=== PATIENT | male | born 1935 | race Caucasian/White ===

== ENCOUNTER 2016-03-17 12:29 | Inpatient (IN) | payer MEDICARE, OTHER ==
[2016-03-17] MEDS ORDERED: IPRATROPIUM/ALBUTEROL 0.5-2.5 MG/3 ML AMPUL NEB ONE (12:44)
[2016-03-17 13:04] LABS: ABSOLUTE EOSINOPHILS # (AUTO) 0.1 10^3/uL (0.0-0.6); ABSOLUTE LYMPHOCYTES (AUTO) 0.6 10^3/uL (0.5-4.7); ABSOLUTE MONOCYTES (AUTO) 0.4 10^3/uL (0.1-1.4); ABSOLUTE NEUT (AUTO) 6.5 10^3/uL (1.7-8.2); BASOPHILS % (AUTO) 0.4 % (0-2); EOSINOPHILS % (AUTO) 1.1 % (0-6); HEMATOCRIT 31.6 % (37.9-51.0); HEMOGLOBIN 10.3 g/dL (13.5-17.0); HGB HCT DIFFERENCE -0.7; LYMPHOCYTES % (AUTO) 7.7 % (13-45); MEAN CORPUSCULAR HGB CONC 32.7 g/dL (32.0-36.0); MEAN CORPUSCULAR VOLUME 92 fl (80-97); MONOCYTES % (AUTO) 4.8 % (3-13); RED BLOOD COUNT 3.44 10^6/uL (4.35-5.55); RED CELL DISTRIBUTION WIDTH 17.8 % (11.5-14.0); WHITE BLOOD COUNT 7.5 10^3/uL (4.0-10.5)
[2016-03-17 13:06] LABS: PROTHROMBIN TIME 15.1 SEC (11.4-15.4)
--- NOTE | 2016-03-17 13:21 | ER Document Report ---
ED General - General Chief Complaint: Respiratory Distress Stated Complaint: RESPIRATORY DISTRESS Mode of Arrival: Medic Information source: Patient, [facility] Records Notes: 80 yr old male DNR hx of chf copd presents as respiratory distress. Pt noted to by hypoxic in the 65% on RA that started this earlier today. denies any fevers or chills nausea or vomtiing . TRAVEL OUTSIDE OF THE [place] IN LAST 30 DAYS: No - HPI Onset: Just prior to arrival Onset/Duration: Sudden Quality of pain: No pain Severity: Severe Pain Level: Denies Associated symptoms: Nonproductive cough, Shortness of breath Exacerbated by: Denies Relieved by: Denies Similar symptoms previously: Yes Recently seen / treated by doctor: Yes - Related Data Allergies/Adverse Reactions: No Known Allergies Allergy (Verified 12/22/15 10:06) Past Medical History - Social History Smoking Status: Never Smoker Cigarette use (# per day): No Chew tobacco use (# tins/day): No Smoking Education Provided: No Family History: Reviewed & Not Pertinent - Past Medical History Cardiac Medical History: Reports: Hx Atrial Fibrillation, Hx Congestive Heart Failure, Hx Heart Attack, Hx Hypercholesterolemia, Hx Hypertension, Hx Peripheral Vascular Disease Pulmonary Medical History: Reports: Hx COPD Endocrine Medical History: Reports: Hx Diabetes Mellitus Type 1, Hx Diabetes Mellitus Type 2 Psychiatric Medical History: Denies: Hx Depression Past Surgical History: Reports: Hx Orthopedic Surgery - Immunizations Hx Diphtheria, Pertussis, Tetanus Vaccination: Yes Hx Pneumococcal Vaccination: 09/12/59 Review of Systems - Review of Systems Notes: REVIEW OF SYSTEMS: CONSTITUTIONAL : Denies fever, chills, or sweats. Denies recent illness. EENT: Denies eye, ear, throat, or mouth pain or symptoms. Denies nasal or sinus congestion or discharge. Denies throat, tongue, or mouth swelling or difficulty swallowing. CARDIOVASCULAR: Denies chest pain. Denies palpitations or racing or irregular heart beat. Denies ankle edema. RESPIRATORY: Admits shortness breath difficulty breathing GASTROINTESTINAL: Denies abdominal pain or distention. Denies nausea, vomiting , or diarrhea. Denies blood in vomitus, stools, or per rectum. Denies black, tarry stools. Denies constipation. GENITOURINARY: Denies difficulty urinating, painful urination, burning, frequency, blood in urine, or discharge. MUSCULOSKELETAL: Denies back or neck pain or stiffness. Denies joint pain or swelling. SKIN: Denies rash, lesions or sores. HEMATOLOGIC : Denies easy bruising or bleeding. LYMPHATIC: Denies swollen, enlarged glands. NEUROLOGICAL: Denies confusion or altered mental status. Denies passing out or loss of consciousness. Denies dizziness or lightheadedness. Denies headache. Denies weakness or paralysis or loss of use of either side. Denies problems with gait or speech. Denies sensory loss, numbness, or tingling. Denies seizures. PSYCHIATRIC: Denies anxiety or stress. Denies depression, suicidal ideation, or homicidal ideation. ALL OTHER SYSTEMS REVIEWED AND NEGATIVE. Dictation was performed using [employer] voice recognition software PHYSICAL EXAMINATION: GENERAL: Ill-appearing male significant respiratory distress. HEAD: Atraumatic, normocephalic. EYES: Pupils equal round and reactive to light, extraocular movements intact, sclera anicteric, conjunctiva are normal. ENT: Nares patent, oropharynx clear without exudates. Moist mucous membranes. NECK: Normal range of motion, supple without lymphadenopathy LUNGS: Coarse rhonchi all throughout retractions noted HEART: Regular rate and rhythm without murmurs ABDOMEN: Soft, nontender, nondistended abdomen. No guarding, no rebound. No masses appreciated. Musculoskeletal: Normal range of motion, no pitting or edema. No cyanosis. NEUROLOGICAL: Cranial nerves grossly intact. Normal speech, normal gait. Normal sensory, motor exams PSYCH: Normal mood, normal affect. SKIN: Warm, Dry, normal turgor, no rashes or lesions noted. Patient immediately placed on BiPAP, lab work imaging are pending at this time, he does have significant respiratory distress and poor prognosis Physical Exam - Vital signs Vitals: BP 149/104 H 03/17/16 12:33 Course - Re-evaluation Re-evalutation: 03/17/16 14:18 pt immediately plaed on bipap , satting well but in significant resp distress chest xray is noted to have chf exacerbation will admit to hospitalist service - Vital Signs Vital signs: Temp Pulse Resp BP Pulse Ox 23 H 130/98 H 97 03/17/16 13:01 03/17/16 13:01 03/17/16 13:01 - Laboratory Result Diagrams: 03/17/16 12:45 03/17/16 12:45 Laboratory results interpreted by me: 03/17/16 03/17/16 03/17/16 12:45 12:45 13:30 RBC 3.44 L Hgb 10.3 L Hct 31.6 L RDW 17.8 H Seg Neutrophils % 86.0 H Lymphocytes % 7.7 L VBG pH 7.25 L VBG pCO2 65.3 H* BUN 61 H Creatinine 2.39 H Est GFR ( Amer) 32 L Est GFR (Non-Af Amer) 26 L Glucose 169 H Alkaline Phosphatase 185 H - Diagnostic Test Radiology reviewed: Image reviewed, Reports reviewed - EKG Interpretation by Me EKG shows normal: Sinus rhythm, Fields, Intervals, QRS Complexes Rhythm: A.Fib Critical Care Note - Critical Care Note Total time excluding time spent on procedures (mins): 33 Comments: minutes of critical care time spent in direct contact evaluating and reevaluating the patient, treating symptoms, reviewing labs and studies and speaking with family and consultants excluding any procedures Discharge - Discharge Clinical Impression: KIRTI (acute kidney injury), Acute and chronic respiratory failure with hypoxia Atrial fibrillation Qualifiers: Atrial fibrillation type: persistent Qualified Code(s): I48.1 - Persistent atrial fibrillation CHF (congestive heart failure) Qualifiers: Congestive heart failure type: diastolic Congestive heart failure chronicity: acute on chronic Qualified Code(s): I50.33 - Acute on chronic diastolic ( congestive) heart failure Chronic obstructive pulmonary disease Qualifiers: COPD type: unspecified COPD Qualified Code(s): J44.9 - Chronic obstructive pulmonary disease, unspecified Condition: Stable Disposition: ADMITTED INPATIENT Admitting Provider: Hospitalist Unit Admitted: [facility]
[2016-03-17 13:25] LABS: ALANINE AMINOTRANSFERASE 33 U/L (21-72); ALBUMIN 3.9 g/dL (3.5-5.0); ALKALINE PHOSPHATASE 185 U/L (38-126); ANION GAP 16 (5-19); ASPARTATE AMINO TRANSFERASE 44 U/L (17-59); BILIRUBIN,TOTAL 0.6 mg/dL (0.2-1.3); BLOOD UREA NITROGEN 61 mg/dL (7-20); CARBON DIOXIDE 27 mmol/L (22-30); CHLORIDE 102 mmol/L (98-107); CREATININE RESULT 2.39 mg/dL (0.52-1.25); GLUCOSE 169 mg/dL (75-110); POTASSIUM 3.8 mmol/L (3.6-5.0); TOTAL PROTEIN 6.9 g/dL (6.3-8.2)
[2016-03-17 13:42] LABS: VENOUS BLOOD BASE EXCESS -0.6 mmol/L; VENOUS BLOOD HCO3 27.7 mmol/L (20-32); VENOUS BLOOD PH 7.25 (7.30-7.42)
[2016-03-17 13:48] LABS: VENOUS BLOOD PCO2 65.3 mmHg (35-63)
[2016-03-17] MEDS ORDERED: LEVALBUTEROL HCL NEB 1.25 MG/3 ML AMPUL NEB PRN (15:07)
[2016-03-17] MEDS ORDERED: ACETAMINOPHEN 325 MG TABLET PO PRN (15:07)
[2016-03-17] MEDS ORDERED: POLYETHYLENE GLYCOL 3350 POWDER 17 GM/1 PACKET PO PRN (15:12)
[2016-03-17] MEDS ORDERED: DEXTROSE 50%-WATER 25 GM/50 ML DISP.SYRIN IV PRN ×2 (15:14)
[2016-03-17] MEDS ORDERED: GLUCAGON,HUMAN RECOMB 1 MG INJ IM PRN (15:14)
[2016-03-17] MEDS ORDERED: INSULIN LISPRO 100 UNIT/ML 3 ML VIAL SUBCUT PRN (15:14)
[2016-03-17] MEDS ORDERED: DEXTROSE 40% GEL 15 GM TUBE PO PRN ×2 (15:14)
[2016-03-17] MEDS ORDERED: PHARMACY COMMUNICATION ORDER MC NR ×2 (15:15→17:30)
[2016-03-17] MEDS ORDERED: VANCOMYCIN HCL 0 MG in DEXTROSE 5%-WATER 250 ML IV NR (15:15)
[2016-03-17] MEDS ORDERED: METHYLPREDNISOLONE INJ 40 MG/1 ML SDV IV ONE (15:45)
[2016-03-17] MEDS ORDERED: METHYLPREDNISOLONE INJ 125 MG/2 ML SDV IV ONE (15:45)
[2016-03-17] MEDS ORDERED: LEVOFLOXACIN 750 MG/D5W RTU 750 MG/150 ML RTUPB IV ONE (16:00)
--- NOTE | 2016-03-17 16:05 | EKG REPORT ---
SEVERITY:- ABNORMAL ECG - ATRIAL FIBRILLATION, V-RATE 99-161 VPC REPOLARIZATION ABNORMALITY, PROB RATE RELATED BORDERLINE PROLONGED QT INTERVAL : Confirmed by: Sirena Herr 17-Mar-2016 16:04:47
[2016-03-17] MEDS ORDERED: NITROGLYCERIN 2% OINTMENT 1 GM PACKET TP ONE (16:15)
[2016-03-17] MEDS: IPRATROPIUM/ALBUTEROL 0.5-2.5 MG/3 ML AMPUL NEB SCH ×2 (16:18→20:28)
[2016-03-17 16:25] LABS: APPEARANCE,URINE SLIGHTLY-CLOUDY; BILIRUBIN,URINE NEGATIVE (NEGATIVE); GLUCOSE, URINE NEGATIVE (NEGATIVE); KETONES,URINE NEGATIVE (NEGATIVE); LEUKOCYTE ESTERASE,URINE TRACE (NEGATIVE); NITRITE,URINE NEGATIVE (NEGATIVE); PROTEIN,URINE 30 mg/dL (NEGATIVE); URINE SPECIFIC GRAVITY 1.014; UROBILINOGEN,URINE NEGATIVE mg/dL (<2.0)
[2016-03-17] MEDS ORDERED: ASPIRIN 300 MG SUPP, RECTAL PR ONE (16:30)
[2016-03-17 16:56] LABS: ARTERIAL BLOOD BASE EXCESS -2.9 mmol/L; ARTERIAL BLOOD O2 SATURATION 84.8 % (94-98)
[2016-03-17] MEDS ORDERED: SODIUM BICARBONATE 8.4% INJ 50 MEQ/50 ML DISP.SYRIN IV ONE (17:20)
[2016-03-17] MEDS ORDERED: METOPROLOL TARTRATE PF/INJ 5 MG/5 ML SDV IV ONE (17:22)
[2016-03-17] MEDS ORDERED: BUMETANIDE INJ/PF 1 MG/4 ML SDV IV SCH ×2 (18:00→22:00)
[2016-03-17] MEDS ORDERED: CEFEPIME 2 GM/D5W RTU 2 GM/50 ML RTUPB IV SCH (18:00)
[2016-03-17] MEDS ORDERED: NORMAL SALINE 1000 ML 500 ML IV ONE (18:24)
[2016-03-17] MEDS: DOCUSATE SODIUM 100 MG CAPSULE PO SCH (18:42)
[2016-03-17] MEDS: LANSOPRAZOLE 15 MG TAB.RAP.DR PO SCH (18:42)
[2016-03-17] MEDS: VANCOMYCIN HCL 1,000 MG in DEXTROSE 5%-WATER 250 ML IV SCH (19:25)
[2016-03-17] MEDS: FLUTICASONE NASAL SPRAY 50 MCG/SPRY 120 SPRAY/16 GM NAREB SCH (19:29)
[2016-03-17] MEDS: ALBUMIN HUMAN 50 ML IV SCH ×2 (20:22→23:07)
[2016-03-17] MEDS: ACETYLCYSTEINE 20% SOLN 800 MG/4 ML VIAL.NEB NEB SCH (20:28)
[2016-03-17] MEDS: DILTIAZEM HCL/D5W 125 ML IV PRN (20:58)
--- NOTE | 2016-03-17 21:15 | PDOC H&P ---
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 Patient is on BiPAP and unable to give very much history but cannot intermittently. He does describe to fever, per sputum, and increasing shortness of breath. Apparently patient was found to have very low oxygen saturation when he picked him up. He also was found to be in A. fib with RVR. Patient also found to be overtly volume overloaded. Patient apparently according to his surrogate decision maker rigidity or, was found to be in A. fib yesterday with RVR and declined going to the emergency department. Patient being admitted to the hospital service for sepsis, healthcare associated pneumonia, and acute hypoxemic respiratory failure. Past Medical History Cardiac Medical History: Reports: Atrial Fibrillation, Congestive Heart Failure , Myocardial Infarction, Hyperlipidema, Hypertension, Peripheral Vascular Disease Pulmonary Medical History: Reports: Chronic Obstructive Pulmonary Disease (COPD) Endocrine Medical History: Reports: Diabetes Mellitus Type 1, Diabetes Mellitus Type 2 Psychiatric Medical History: Denies: Depression Past Surgical History Past Surgical History: Reports: Orthopedic Surgery Social History Information Source: [facility] Records Lives with: Skilled Nursing Smoking Status: Former Smoker Frequency of Alcohol Use: None Hx Recreational Drug Use: No Hx Prescription Drug Abuse: No - Advance Directive Resuscitation Status: Do Not Resuscitate Surrogate healthcare decision maker:: Eve SANTIZO, family friend Family History Family History: Reviewed & Not Pertinent Parental Family History Reviewed: No - unable to speak Children Family History Reviewed: No Sibling(s) Family History Reviewed.: No Medication/Allergy Home Medications: Acetaminophen [Tylenol Extra Strength 500 mg Tablet] 500 mg PO Q4HP PRN Albuterol Sulfate [Proair HFA] 2 puff IH Q6HP PRN 03/17/16 Allopurinol [Zyloprim 100 mg Tablet] 100 mg PO DAILY 03/17/16 Aspirin [Aspirin 325 mg Tablet] 325 mg PO DAILY 03/17/16 Cyanocobalamin (Vitamin B-12) [Vitamin B-12 1000 mcg Tablet] 1,000 mcg PO DAILY 03/17/16 Escitalopram Oxalate [Lexapro 10 mg Tablet] 20 mg PO DAILY 03/17/16 Ferrous Sulfate 325 mg PO DAILY 03/17/16 Fluticasone Propionate [Flonase Nasal Winside 50 Mcg/Winside 16 gm] 1 spray IN BID 03/17/16 Furosemide [Lasix 40 mg Tablet] 40 mg PO DAILY 03/17/16 Guaifenesin [Robitussin Syrup 200 mg/10 ml Ud Cup] 200 mg PO Q6HP PRN 03/17/16 Hydralazine HCl 75 mg PO Q8 03/17/16 Isosorbide Mononitrate [Imdur 60 mg Tablet.er] 60 mg PO DAILY 03/17/16 Loperamide HCl [Imodium 2 mg Capsule] 2 mg PO PRN PRN 03/17/16 Magnesium Hydroxide [Milk of Magnesia 30 ml Udcup] 30 mg PO QHS 03/17/16 Methocarbamol 750 mg PO QHS 03/17/16 Neomy Sulf/Bacitrac Zn/Poly [Triple Antibiotic Ointment] 1 applic TOP PRN PRN Polyethylene Glycol 3350 [Miralax Powder 17 gm/Packet] 17 gm PO DAILY 03/17/16 Tamsulosin HCl [Flomax 0.4 mg Cap.sr] 0.4 mg PO QHS 03/17/16 Tiotropium [place] [Spiriva Handihaler 18 mcg/dose (30 Dose)] 1 cap IH DAILY 06/28 Tramadol HCl 50 mg PO QHS 03/17/16 Allergies/Adverse Reactions: No Known Allergies Allergy (Verified 12/22/15 10:06) Review of Systems ROS unobtainable: Other - BiPAP Physical Exam Vital Signs: Temp Pulse Resp BP Pulse Ox 97.4 F 136 H 19 97/60 L 84 L 03/17/16 17:42 03/17/16 18:14 03/17/16 17:42 03/17/16 17:42 03/17/16 17:25 General appearance: PRESENT: hard of hearing, severe distress, well-developed, well-nourished Head exam: PRESENT: atraumatic, normocephalic Eye exam: PRESENT: conjunctival injection, conjunctiva pink, EOMI, PERRLA. ABSENT: scleral icterus Ear exam: PRESENT: normal external ear exam Mouth exam: PRESENT: moist Neck exam: PRESENT: JVD, thyromegaly. ABSENT: lymphadenopathy, tracheal deviation Respiratory exam: PRESENT: accessory muscle use, crackles - Bilateral bases, decreased breath sounds - Bases, prolonged expiratory phas, retraction - Intercostal, rhonchi - Scattered, symmetrical, tachypnea. ABSENT: stridor, unlabored, wheezes Cardiovascular exam: PRESENT: irregular rhythm, +S1, +S2, systolic murmur, tachycardia. ABSENT: diastolic murmur, RRR, rubs Pulses: PRESENT: normal carotid pulses, normal radial pulses Vascular exam: ABSENT: normal capillary refill GI/Abdominal exam: PRESENT: hypoactive bowel sounds, soft, tenderness. ABSENT: distended, firm, guarding, mass, Nichole's sign, organolmegaly, rebound, rigid Rectal exam: PRESENT: deferred Extremities exam: PRESENT: other - 3+ pitting edema Neurological exam: PRESENT: alert, awake, other - Unable to fully assess due to BiPAP Psychiatric exam: PRESENT: appropriate affect, normal mood Skin exam: PRESENT: dry, intact. ABSENT: cyanosis, rash, warm - Clinical Results Laboratory Results: 03/17/16 03/17/16 03/17/16 15:11 16:10 16:25 Carbonic Acid 2.22 H HCO3/H2CO3 Ratio 12:1 ABG pH 7.18 L* ABG pCO2 73.6 H* ABG pO2 62.2 L ABG HCO3 26.9 H ABG O2 Saturation 84.8 L ABG Base Excess -2.9 FiO2 100% Lactic Acid Cancelled Urine Color YELLOW Urine Appearance SLIGHTLY-CLOUDY Urine pH 5.0 Ur Specific [place] 1.014 Urine Protein 30 H Urine Glucose (UA) NEGATIVE Urine Ketones NEGATIVE Urine Blood NEGATIVE Urine Nitrite NEGATIVE Ur Leukocyte Esterase TRACE H Urine WBC (Auto) 3 Urine RBC (Auto) 0 Impressions: Chest X-Ray 03/17/16 12:34 IMPRESSION: Bibasilar densities as noted above Assessment & Plan - Diagnosis (1) Acute and chronic respiratory failure with hypoxia Is this a current diagnosis for this admission?: YesPlan: Currently on BiPAP. Will titrate this after ABG. Patient is a DNR/DNI (2) Healthcare-associated pneumonia Is this a current diagnosis for this admission?: YesPlan: Begin patient on cefepime, Levaquin, and vancomycin. Pending sputum culture. Begin on pulmonary toileting. Continue BiPAP. Patient has history also of bronchiectasis prior smoking history. No history of Pseudomonas to our record. Feel the patient is quite ill and have discussed with his surrogate decision maker the severity of his illness. (3) Sepsis Qualifiers: Sepsis type: sepsis due to unspecified organism Qualified Code(s): A41.9 - Sepsis, unspecified organism Is this a current diagnosis for this admission?: YesPlan: Likely secondary to healthcare associated pneumonia. (4) Hypothermia Qualifiers: Encounter type: initial encounter Qualified Code(s): T68.XXXA - Hypothermia, initial encounter Is this a current diagnosis for this admission?: YesPlan: Warming blanket and treat sepsis. Check TSH and cortisol (5) Atrial fibrillation with RVR Is this a current diagnosis for this admission?: YesPlan: We'll place patient on scheduled metoprolol. Likely secondary to underlying sepsis. Will resume Coreg when able (6) Chronic obstructive pulmonary disease Qualifiers: COPD type: unspecified COPD Qualified Code(s): J44.9 - Chronic obstructive pulmonary disease, unspecified Is this a current diagnosis for this admission?: YesPlan: Scheduled nebulized treatments and steroids (7) Anemia in chronic kidney disease Is this a current diagnosis for this admission?: YesPlan: Monitor H&H (8) BPH (benign prostatic hypertrophy) Qualifiers: Prostatic enlargement morphology: unspecified morphology Lower urinary tract symptom presence: presence of symptoms unspecified Qualified Code(s ): N40.0 - Benign prostatic hyperplasia without lower urinary tract symptoms Is this a current diagnosis for this admission?: Yes (9) CKD stage 4 due to type 2 diabetes mellitus Is this a current diagnosis for this admission?: YesPlan: Radially adjust all medications (10) Coronary artery disease Qualifiers: Coronary Disease-Associated Artery/Lesion type: [place] artery Associated angina: without angina Is this a current diagnosis for this admission?: Yes (11) Diabetes mellitus type II, controlled Qualifiers: Diabetes mellitus complication status: without complication Diabetes mellitus intermodal truck driver insulin use: with intermediate use Qualified Code(s): E11.9 - Type 2 diabetes mellitus without complications Is this a current diagnosis for this admission?: YesPlan: Accu-Cheks and sliding scale Insulin every 6 patient currently nothing by mouth (12) Diastolic congestive heart failure Qualifiers: Congestive heart failure chronicity: acute on chronic Qualified Code (s): I50.33 - Acute on chronic diastolic (congestive) heart failure Is this a current diagnosis for this admission?: Yes (13) Peripheral vascular disease Is this a current diagnosis for this admission?: Yes - Time Time Spent: Greater than 70 Minutes Medications reviewed and adjusted accordingly: Yes - Inpatient Certification Based on my medical assessment, after consideration of the patient's comorbidities, presenting symptoms, or acuity I expect that the services needed warrant INPATIENT care.: Yes I certify that my determination is in accordance with my understanding of Medicare's requirements for reasonable and necessary INPATIENT services [42 CFR 412.3e].: Yes Medical Necessity: Need For IV Fluids, Need For Continuous Telemetry Monitoring , Need for Nebulizer Therapy and Monitoring of Response, Need for IV Antibiotics Post Hospital Care: D/C Financial Examiner Documentation
[2016-03-17] MEDS ORDERED: METHYLPREDNISOLONE INJ 40 MG/1 ML SDV IV SCH (22:00)
[2016-03-17] MEDS: CEFEPIME HCL 2 GM in DEXTROSE 5%-WATER 50 ML IV SCH (22:37)
[2016-03-17] MEDS: HEPARIN SOD (PORCINE) 5,000 UNIT/ML 1 ML SYRINGE SUBCUT SCH (22:38)
[2016-03-17] MEDS: METHYLPREDNISOLONE INJ 125 MG/2 ML SDV IV SCH (22:38)
[2016-03-18] MEDS: TAMSULOSIN HCL 0.4 MG CAP.SR.24H PO SCH ×2 (00:32→21:58)
[2016-03-18] MEDS: GUAIFENESIN 600 MG TABLET.SA PO SCH ×3 (00:32→21:58)
[2016-03-18] MEDS: SENNOSIDES/DOCUSATE 8.6-50 MG 1 EACH TABLET PO SCH ×2 (00:32→21:58)
[2016-03-18 01:22] LABS: ARTERIAL BLOOD O2 SATURATION 92.2 % (94-98)
[2016-03-18] MEDS ORDERED: MORPHINE SULFATE 10 MG/ML INJ ONE (04:50)
[2016-03-18] MEDS ORDERED: MORPHINE SULFATE 10 MG/ML INJ IV ONE (06:00)
[2016-03-18] MEDS ORDERED: DOPAMINE HCL/DEXTROSE 5%-WATER 800 MG/250 ML RTUINJ IV ONE (06:03)
[2016-03-18] MEDS ORDERED: DOPAMINE HCL/DEXTROSE 5%-WATER 250 ML IV PRN (06:10)
[2016-03-18] MEDS ORDERED: MORPHINE SULFATE 10 MG/ML INJ IV PRN (06:10)
[2016-03-18 06:18] LABS: HEMOGLOBIN 9.6 g/dL (13.5-17.0); HGB HCT DIFFERENCE -1.2; MEAN CORPUSCULAR HEMOGLOBIN 29.9 pg (27.0-33.4); MEAN CORPUSCULAR HGB CONC 32.1 g/dL (32.0-36.0); MEAN CORPUSCULAR VOLUME 93 fl (80-97); RED BLOOD COUNT 3.22 10^6/uL (4.35-5.55); RED CELL DISTRIBUTION WIDTH 17.6 % (11.5-14.0); WHITE BLOOD COUNT 5.3 10^3/uL (4.0-10.5)
[2016-03-18 06:25] LABS: ANION GAP 18 (5-19); BLOOD UREA NITROGEN 64 mg/dL (7-20); CALCIUM 8.3 mg/dL (8.4-10.2); CARBON DIOXIDE 21 mmol/L (22-30); CHLORIDE 106 mmol/L (98-107); CREATININE RESULT 2.76 mg/dL (0.52-1.25); GLUCOSE 126 mg/dL (75-110); POTASSIUM 4.5 mmol/L (3.6-5.0); SODIUM 145.4 mmol/L (137-145)
[2016-03-18] MEDS ORDERED: FUROSEMIDE INJ/PF 40 MG/4 ML SDV IV ONE (07:00)
[2016-03-18] MEDS: METHYLPREDNISOLONE INJ 125 MG/2 ML SDV IV SCH ×3 (07:03→21:42)
[2016-03-18] MEDS: HEPARIN SOD (PORCINE) 5,000 UNIT/ML 1 ML SYRINGE SUBCUT SCH ×3 (07:03→21:43)
[2016-03-18] MEDS: LANSOPRAZOLE 15 MG TAB.RAP.DR PO SCH ×2 (07:05→16:23)
[2016-03-18 07:12] LABS: BASOPHILS % (MANUAL) 0 % (0-2); EOSINOPHILS % (MANUAL) 0 % (0-6); LYMPHOCYTES % (MANUAL) 8 % (13-45); TOTAL CELLS COUNTED 100
[2016-03-18 07:16] LABS: ANISOCYTOSIS 1+; BAND NEUTROPHILS % (MANUAL) 34 % (3-5); OVALOCYTES SLIGHT; POIKILOCYTOSIS SLIGHT; POLYCHROMASIA SLIGHT; TOXIC GRANULATION 1+; TOXIC VACUOLATION PRESENT
[2016-03-18] MEDS: ACETYLCYSTEINE 20% SOLN 800 MG/4 ML VIAL.NEB NEB SCH ×2 (08:14→19:45)
[2016-03-18] MEDS: IPRATROPIUM/ALBUTEROL 0.5-2.5 MG/3 ML AMPUL NEB SCH ×4 (08:14→19:45)
[2016-03-18] MEDS ORDERED: COLLAGENASE CLOSTRIDIUM HIST. OINT 30 GM TP SCH (10:00)
[2016-03-18] MEDS ORDERED: ASPIRIN 325 MG TABLET PO SCH (10:00)
[2016-03-18] MEDS ORDERED: CYANOCOBALAMIN (VITAMIN B-12) 1,000 MCG TABLET PO SCH (10:00)
[2016-03-18] MEDS: DOCUSATE SODIUM 100 MG CAPSULE PO SCH ×2 (10:56→17:48)
[2016-03-18] MEDS: METOPROLOL TARTRATE PF/INJ 5 MG/5 ML SDV IV SCH (10:56)
[2016-03-18] MEDS: CEFEPIME HCL 2 GM in DEXTROSE 5%-WATER 50 ML IV SCH ×2 (10:59→22:54)
[2016-03-18] MEDS: FLUTICASONE NASAL SPRAY 50 MCG/SPRY 120 SPRAY/16 GM NAREB SCH ×2 (10:59→17:51)
[2016-03-18 12:41] LABS: ARTERIAL BLOOD BASE EXCESS -7.1 mmol/L; ARTERIAL BLOOD O2 SATURATION 87.2 % (94-98)
[2016-03-18] MEDS: ALBUMIN HUMAN 50 ML IV SCH ×4 (12:51→16:22)
[2016-03-18] MEDS ORDERED: SODIUM BICARBONATE 8.4% INJ 50 MEQ/50 ML DISP.SYRIN IV ONE (13:10)
[2016-03-18] MEDS: NORMAL SALINE 1000 ML 1,000 ML IV PRN (13:45)
[2016-03-18] MEDS: BUMETANIDE INJ/PF 1 MG/4 ML SDV IV SCH ×2 (14:21→21:44)
[2016-03-18] MEDS: VANCOMYCIN HCL 1,000 MG in DEXTROSE 5%-WATER 250 ML IV SCH (17:51)
--- NOTE | 2016-03-18 18:19 | PDOC PROGRESS REPORT ---
Subjective Progress Note for:: 03/18/16 Subjective:: Patient is unresponsive today. He was placed on dopamine overnight. Patient hypotensive grossly volume overloaded when I see him. Physical Exam Vital Signs: Temp Pulse Resp BP Pulse Ox 97.4 F 84 23 H 130/91 H 91 L 03/18/16 01:58 03/18/16 03:00 03/18/16 04:15 03/18/16 04:05 03/18/16 04:15 Pulse Oximeter Continuous Start: 03/17/16 15: 07 Freq: RTQ4 Status: Active Document 03/18/16 04:00 STI (Rec: 03/18/16 06:15 [email or web address] [email or web address]) Pulse Oximetry Assessment Oxygen Saturation (92-100) 91 Oxygen Delivery Method Bi-pap Fraction of Inspired Oxygen (FIO2) 100 Equipment Usage Initial Set Up Continuous SpO2 Machine # [id number] Intake & Output 03/17/16 03/18/16 03/19/16 06:59 06:59 06:59 Intake Total 0 Output Total 100 Balance -100 Weight 97.62 kg Exam: General: Unresponsive, moderate to severe respiratory distress, on BiPAP, tachypnea, acutely ill-appearing HEENT: AT/NC, PERRL, oropharynx is moist, pink, no scleral icterus, no conjunctival injection Neck:+ JVD, trachea midline Chest: tachypnea, retractions, use of accessory muscles, Poor airflow throughout , diminished bases bilaterally, occasional rhonchi CV: IRR, 3/6 TOM apex Abdomen: Soft, nontender to palpation, nondistended, active bowel sounds; no rebound, rigidity, or guarding Extremities: No cyanosis, clubbing; 2+edema Results Laboratory Results: 03/18/16 05:48 03/18/16 05:48 03/17/16 03/17/16 03/17/16 15:11 16:10 16:25 WBC RBC Hgb Hct MCV MCH MCHC RDW Plt Count Seg Neutrophils % Lymphocytes % Monocytes % Eosinophils % Basophils % Absolute Neutrophils Absolute Lymphocytes Absolute Monocytes Absolute Eosinophils Absolute Basophils Carbonic Acid 2.22 H HCO3/H2CO3 Ratio 12:1 ABG pH 7.18 L* ABG pCO2 73.6 H* ABG pO2 62.2 L ABG HCO3 26.9 H ABG O2 Saturation 84.8 L ABG Base Excess -2.9 FiO2 100% Sodium Potassium Chloride Carbon Dioxide Anion Gap BUN Creatinine Est GFR ( Amer) Est GFR (Non-Af Amer) Glucose Lactic Acid Cancelled Calcium Urine Color YELLOW Urine Appearance SLIGHTLY-CLOUDY Urine pH 5.0 Ur Specific [place] 1.014 Urine Protein 30 H Urine Glucose (UA) NEGATIVE Urine Ketones NEGATIVE Urine Blood NEGATIVE Urine Nitrite NEGATIVE Ur Leukocyte Esterase TRACE H Urine WBC (Auto) 3 Urine RBC (Auto) 0 03/18/16 03/18/16 03/18/16 01:10 05:48 05:48 WBC 5.3 RBC 3.22 L Hgb 9.6 L Hct 30.0 L MCV 93 MCH 29.9 MCHC 32.1 RDW 17.6 H Plt Count 204 Seg Neutrophils % Not Reportable Lymphocytes % Not Reportable Monocytes % Not Reportable Eosinophils % Not Reportable Basophils % Not Reportable Absolute Neutrophils Not Reportable Absolute Lymphocytes Not Reportable Absolute Monocytes Not Reportable Absolute Eosinophils Not Reportable Absolute Basophils Not Reportable Carbonic Acid 1.93 H HCO3/H2CO3 Ratio 12:1 ABG pH 7.18 L* ABG pCO2 64.2 H ABG pO2 79.4 L ABG HCO3 23.2 ABG O2 Saturation 92.2 L ABG Base Excess -6.0 FiO2 100% Sodium 145.4 H Potassium 4.5 Chloride 106 Carbon Dioxide 21 L Anion Gap 18 BUN 64 H Creatinine 2.76 H Est GFR ( Amer) 27 L Est GFR (Non-Af Amer) 22 L Glucose 126 H Lactic Acid Calcium 8.3 L Urine Color Urine Appearance Urine pH Ur Specific [place] Urine Protein Urine Glucose (UA) Urine Ketones Urine Blood Urine Nitrite Ur Leukocyte Esterase Urine WBC (Auto) Urine RBC (Auto) 03/17/16 03/18/16 21:07 05:48 Troponin I 0.024 NT-Pro-B Natriuret Pep 82363 H Impressions: Chest X-Ray 03/17/16 12:34 IMPRESSION: Bibasilar densities as noted above Assessment & Plan - Diagnosis (1) Acute and chronic respiratory failure with hypoxia Is this a current diagnosis for this admission?: YesPlan: Secondary to combined congestive heart failure and sepsis from pneumonia. Currently on BiPAP. Repeat ABG. Patient is a DNR/DNI. Increase settings to 16 /6. (2) Healthcare-associated pneumonia Is this a current diagnosis for this admission?: YesPlan: Begin patient on cefepime, Levaquin, and vancomycin. Pending sputum culture. Grossly pulmonary toileting. Continue BiPAP. Patient has history also of bronchiectasis prior smoking history. No history of Pseudomonas to our record. Feel the patient is quite ill and have discussed with his surrogate decision maker the severity of his illness and that I don't feel that patient will survive this admission. (3) Sepsis Qualifiers: Sepsis type: sepsis due to unspecified organism Qualified Code(s): A41.9 - Sepsis, unspecified organism Is this a current diagnosis for this admission?: YesPlan: Likely secondary to healthcare associated pneumonia. Continue to attempt to maintain map greater than 65 and continue antibiotics. Patient was not a candidate for aggressive fluid bolusing due to his volume overloaded status. (4) Hypothermia Qualifiers: Encounter type: subsequent encounter Qualified Code(s): T68.XXXD - Hypothermia, subsequent encounter Is this a current diagnosis for this admission?: YesPlan: Warming blanket and treat sepsis. SH and cortisol normal (5) Atrial fibrillation with RVR Is this a current diagnosis for this admission?: YesPlan: Currently on Cardizem drip and well-controlled heart rate richardson. (6) Chronic obstructive pulmonary disease Qualifiers: COPD type: unspecified COPD Qualified Code(s): J44.9 - Chronic obstructive pulmonary disease, unspecified Is this a current diagnosis for this admission?: YesPlan: Scheduled nebulized treatments and steroids (7) Anemia in chronic kidney disease Is this a current diagnosis for this admission?: YesPlan: Monitor H&H (8) BPH (benign prostatic hypertrophy) Qualifiers: Prostatic enlargement morphology: unspecified morphology Lower urinary tract symptom presence: presence of symptoms unspecified Qualified Code(s ): N40.0 - Benign prostatic hyperplasia without lower urinary tract symptoms Is this a current diagnosis for this admission?: Yes (9) CKD stage 4 due to type 2 diabetes mellitus Is this a current diagnosis for this admission?: Yes (10) Coronary artery disease Qualifiers: Coronary Disease-Associated Artery/Lesion type: [place] artery Associated angina: without angina Is this a current diagnosis for this admission?: Yes (11) Diabetes mellitus type II, controlled Qualifiers: Diabetes mellitus complication status: without complication Diabetes mellitus tank terminal gauger insulin use: with long-term use Qualified Code(s): E11.9 - Type 2 diabetes mellitus without complications Is this a current diagnosis for this admission?: YesPlan: Accu-Cheks and sliding scale Insulin every 6 patient currently nothing by mouth (12) Diastolic congestive heart failure Qualifiers: Congestive heart failure chronicity: acute on chronic Qualified Code (s): I50.33 - Acute on chronic diastolic (congestive) heart failure Is this a current diagnosis for this admission?: YesPlan: We'll give patient Bumex 1 mg IV every 8. Patient has had very minimal urine output. Will give albumin for hypotension and helpful improved diuresis. (13) Peripheral vascular disease Is this a current diagnosis for this admission?: Yes (14) Acidemia Is this a current diagnosis for this admission?: YesPlan: Combined respiratory and metabolic. Will give bicarbonate is needed - Time Time Spent with patient: 35 or more minutes Medications reviewed and adjusted accordingly: Yes
[2016-03-18] MEDS: DILTIAZEM HCL/D5W 125 ML IV PRN (18:38)
[2016-03-19] MEDS: METOPROLOL TARTRATE PF/INJ 5 MG/5 ML SDV IV SCH (04:24)
[2016-03-19] MEDS: NORMAL SALINE 1000 ML 1,000 ML IV PRN (04:27)
[2016-03-19] MEDS: LANSOPRAZOLE 15 MG TAB.RAP.DR PO SCH (05:13)
[2016-03-19] MEDS: HEPARIN SOD (PORCINE) 5,000 UNIT/ML 1 ML SYRINGE SUBCUT SCH (05:25)
[2016-03-19] MEDS: METHYLPREDNISOLONE INJ 125 MG/2 ML SDV IV SCH (05:25)
[2016-03-19] MEDS: BUMETANIDE INJ/PF 1 MG/4 ML SDV IV SCH (05:25)
[2016-03-19 05:56] LABS: ANION GAP 18 (5-19); BLOOD UREA NITROGEN 81 mg/dL (7-20); CALCIUM 8.2 mg/dL (8.4-10.2); CARBON DIOXIDE 23 mmol/L (22-30); CHLORIDE 105 mmol/L (98-107); CREATININE RESULT 3.52 mg/dL (0.52-1.25); GLUCOSE 164 mg/dL (75-110); MAGNESIUM 2.1 mg/dL (1.6-2.3); POTASSIUM 4.5 mmol/L (3.6-5.0); SODIUM 146.2 mmol/L (137-145)
[2016-03-19 05:58] LABS: HEMATOCRIT 29.9 % (37.9-51.0); HEMOGLOBIN 9.5 g/dL (13.5-17.0); HGB HCT DIFFERENCE -1.4; MEAN CORPUSCULAR HEMOGLOBIN 29.4 pg (27.0-33.4); MEAN CORPUSCULAR HGB CONC 31.9 g/dL (32.0-36.0); MEAN CORPUSCULAR VOLUME 92 fl (80-97); RED BLOOD COUNT 3.24 10^6/uL (4.35-5.55); RED CELL DISTRIBUTION WIDTH 17.5 % (11.5-14.0); WHITE BLOOD COUNT 12.4 10^3/uL (4.0-10.5)
[2016-03-19 06:43] LABS: ARTERIAL BLOOD BASE EXCESS -6.6 mmol/L; ARTERIAL BLOOD O2 SATURATION 62.6 % (94-98)
[2016-03-19 07:19] LABS: ANISOCYTOSIS 1+; BAND NEUTROPHILS % (MANUAL) 30 % (3-5); BASOPHILS % (MANUAL) 0 % (0-2); EOSINOPHILS % (MANUAL) 0 % (0-6); LYMPHOCYTES % (MANUAL) 3 % (13-45); POLYCHROMASIA SLIGHT; TOTAL CELLS COUNTED 100; TOXIC GRANULATION 1+; TOXIC VACUOLATION PRESENT
[2016-03-19] MEDS: IPRATROPIUM/ALBUTEROL 0.5-2.5 MG/3 ML AMPUL NEB SCH (07:58)
[2016-03-19] MEDS: ACETYLCYSTEINE 20% SOLN 800 MG/4 ML VIAL.NEB NEB SCH (08:36)
[2016-03-19 09:06] VITALS: BP 70/29
[2016-03-19] MEDS ORDERED: LEVOFLOXACIN 750 MG/D5W RTU 750 MG/150 ML RTUPB IV SCH (10:00)
--- NOTE | 2016-03-20 15:04 | Death Summary ---
Summary Date : 03/19/16 Time of :: 09:04 Autopsy: No Resuscitation Status: Do Not Resuscitate Primary Care Provider: Dr. Hernandez - Final Diagnosis (1) Septic shock Is this a current diagnosis for this admission?: Yes (2) Acute and chronic respiratory failure with hypoxia Is this a current diagnosis for this admission?: Yes (3) Healthcare-associated pneumonia Is this a current diagnosis for this admission?: Yes (4) Acute on chronic diastolic (congestive) heart failure Is this a current diagnosis for this admission?: Yes (5) Atrial fibrillation with RVR Is this a current diagnosis for this admission?: Yes (6) Hypothermia Is this a current diagnosis for this admission?: Yes (7) Chronic obstructive pulmonary disease Is this a current diagnosis for this admission?: Yes (8) Anemia in chronic kidney disease Is this a current diagnosis for this admission?: Yes (9) BPH (benign prostatic hypertrophy) Is this a current diagnosis for this admission?: Yes (10) CKD stage 4 due to type 2 diabetes mellitus Is this a current diagnosis for this admission?: Yes (11) Coronary artery disease Is this a current diagnosis for this admission?: Yes (12) Diabetes mellitus type II, controlled Is this a current diagnosis for this admission?: Yes (13) Peripheral vascular disease Is this a current diagnosis for this admission?: Yes (14) Acidemia Is this a current diagnosis for this admission?: Yes (15) Acute kidney injury superimposed on chronic kidney disease Is this a current diagnosis for this admission?: Yes (16) Anemia Is this a current diagnosis for this admission?: Yes Hospital Course:: [facility]. Patient was initially placed on BiPAP and found to have healthcare associated pneumonia. Empirically patient was started on treatment with vancomycin, cefepime, and Levaquin. Unfortunately, patient was also volume overloaded and suffering from acute on chronic diastolic congestive heart failure which was exacerbated by his atrial fibrillation with rapid ventricular response. Patient was in A. fib with RVR secondary to underlying severe sepsis as patient was hypothermic, tachycardic, tachypnea, with obvious infection on presentation. Patient was placed on BiPAP, antibiotics, and diuretics as well as Cardizem. Patient eventually required the addition of dopamine and he had some improvement of diuresis. Patient was also given albumin 50 g IV 2 over the 48 hours with only marginal improvement. Patient continued to decline despite appropriate therapy. Patient's power of ip technology transactions attorney what was present at bedside and reconfirmed patient's decision for DNR/DNI and no aggressive interventions. Patient passed peacefully in the presence of his friend and physician. I pronounced this patient at 9:04 AM. No autopsy was requested.
== END 2016-03-19 10:13 | disposition expired | DRG 871 ==
LOC: ER 12:29 → EH 14:58 → UNDOADMIN 14:58 → EH 15:07 → 3W 17:39
PROVIDERS: ADMIT Family Medicine; ATTEND Family Medicine
PROC: 5A09457 Assistance with Respiratory Ventilation, 24-96 Consecutive Hours, Continuous Positive Airway Pressure (ICD-10-PCS; principal; 2016-03-17)
DX: A41.9 Sepsis, unspecified organism (principal); J18.9 Pneumonia, unspecified organism; J96.21 Acute and chronic respiratory failure with hypoxia; I50.33 Acute on chronic diastolic (congestive) heart failure; N18.4 Chronic kidney disease, stage 4 (severe); T68.XXXA Hypothermia, initial encounter; I48.91 Unspecified atrial fibrillation; J44.9 Chronic obstructive pulmonary disease, unspecified; E11.51 Type 2 diabetes mellitus with diabetic peripheral angiopathy without gangrene; E11.22 Type 2 diabetes mellitus with diabetic chronic kidney disease; D63.1 Anemia in chronic kidney disease; N40.0 Benign prostatic hyperplasia without lower urinary tract symptoms; I25.10 Atherosclerotic heart disease of native coronary artery without angina pectoris; Z66 Do not resuscitate; Z78.1 Physical restraint status; Z79.82 Long term (current) use of aspirin; Z79.899 Other long term (current) drug therapy; I25.2 Old myocardial infarction; Z87.891 Personal history of nicotine dependence
CPT/HCPCS: 36415; 36600; 71010; 80048; 80053; 81001; 82803; 82962; 83605; 83735; 83880; 84484; 85025; 85610; 87040; 87086; 93005; 93010; 94660; 94667; 94668; 94762; 99291; J0692; J1644; J1815; J1940; J1956; J2270; J2930; J3370; J3490; J7030; J7060; J7620; P9047